=== PATIENT | female | born 1965 | race Hispanic/Latino ===

== ENCOUNTER → 2021-03-30 | Day surgery (SDC) | payer OTHER ==
[~2021-03-30] MED LIST: HYOSCYAMINE SULFATE 0.5 MG/ML INJ ONE; KEPPRA750 MG PO
[2021-03-30 17:15] VITALS: BP 133/73
== END | disposition home or self-care (01) ==
LOC: OR 12:54
PROVIDERS: ATTEND Internal Medicine Gastroenterology
DX: K21.9 Gastro-esophageal reflux disease without esophagitis (principal); D12.2 Benign neoplasm of ascending colon; D12.5 Benign neoplasm of sigmoid colon; K31.7 Polyp of stomach and duodenum; K29.70 Gastritis, unspecified, without bleeding; B96.81 Helicobacter pylori [H. pylori] as the cause of diseases classified elsewhere; K20.90 Esophagitis, unspecified without bleeding; K44.9 Diaphragmatic hernia without obstruction or gangrene; K57.30 Diverticulosis of large intestine without perforation or abscess without bleeding; K64.8 Other hemorrhoids; R03.0 Elevated blood-pressure reading, without diagnosis of hypertension; R56.9 Unspecified convulsions; Z01.810 Encounter for preprocedural cardiovascular examination; Z01.812 Encounter for preprocedural laboratory examination; Z20.822 Contact with and (suspected) exposure to COVID-19; Z68.36 Body mass index [BMI] 36.0-36.9, adult; Z85.841 Personal history of malignant neoplasm of brain; Z92.21 Personal history of antineoplastic chemotherapy
CPT/HCPCS: 43239; 45384; 45385; 81025; 93005; C9113; J1980; U0002